=== PATIENT | male | born 1970 | race Caucasian/White ===

== ENCOUNTER 2023-04-28 05:36 | Emergency (ER) | payer BC, SELFPAY ==
[~2023-04-28] VITALS: Ht 185.4 cm; Wt 111.6 kg
[2023-04-28] MEDS: LIDOCAINE 1% MDV 20ML VIAL SC ONE (07:30)
[2023-04-28] MEDS ORDERED: CEPH500C PO (08:29)
[2023-04-28] MEDS: CEPHALEXIN 500 MG CAP PO ONE (08:39)
[2023-04-28] MEDS: NEOSPORIN OINT 0.9 GM PKT TOP ONE (08:39)
[2023-04-28 08:58] VITALS: BP 161/93; TEMP 97.5; O2SAT 100
== END 2023-04-28 08:59 | disposition home or self-care (01) ==
LOC: M ED 05:36
DX: S01.01XA Laceration without foreign body of scalp, initial encounter (principal); W01.190A Fall on same level from slipping, tripping and stumbling with subsequent striking against furniture, initial encounter; F10.10 Alcohol abuse, uncomplicated; F17.200 Nicotine dependence, unspecified, uncomplicated; Y92.009 Unspecified place in unspecified non-institutional (private) residence as the place of occurrence of the external cause; Y93.89 Activity, other specified; Y99.9 Unspecified external cause status; Z79.2 Long term (current) use of antibiotics

== ENCOUNTER 2023-05-10 02:59 | Emergency (ER) | payer BC ==
[~2023-05-10] VITALS: Ht 185.4 cm; Wt 110.4 kg
[2023-05-10 02:59] VITALS: BP 142/95; TEMP 97.6; O2SAT 98
[~2023-05-10 02:59] MED LIST: CEPH500C PO
[2023-05-10] MEDS ORDERED: AMLO1TAB25 (03:09)
== END 2023-05-10 06:31 | disposition home or self-care (01) ==
LOC: M ED 02:59
DX: Z48.02 Encounter for removal of sutures (principal); Z79.899 Other long term (current) drug therapy

== ENCOUNTER 2024-05-05 17:05 | Inpatient (IN) | payer BC ==
[~2024-05-05] VITALS: Ht 180.3 cm; Wt 126.6 kg
[~2024-05-05 17:05] MED LIST changes: +AMLO1TAB25 PO
[2024-05-05 18:00] LABS: BASO # 0.1 10^3/uL (0.0-0.2); BASO % 0.7 % (0.0-1.0); EOS # 0.2 10^3/uL (0.0-0.5); HEMATOCRIT 33.6 % (42.0-52.0); HEMOGLOBIN 12.4 g/dl (13.5-17.5); LYMPH % 20.3 % (24.0-44.0); MEAN CORPUSCULAR HEMOGLOBIN 37.9 pg (27.0-33.0); MEAN CORPUSCULAR HGB CONC 36.9 g/dl (32.0-36.5); MEAN CORPUSCULAR VOLUME 102.8 fl (80.0-96.0); MONO # 1.1 10^3/uL (0.0-0.8); MONO % 11.6 % (2.0-8.0); NEUTROPHILS # 6.3 10^3/uL (1.5-8.5); NEUTROPHILS % 64.7 % (36.0-66.0); PLATELET COUNT, AUTOMATED 257 10^3/uL (150-450); RED BLOOD COUNT 3.27 10^6/uL (4.30-6.10); WHITE BLOOD COUNT 9.7 10^3/uL (4.0-10.0)
[2024-05-05 18:19] LABS: LIPASE 48 U/L (12-53)
[2024-05-05 18:23] LABS: ALBUMIN 2.4 G/DL (3.2-5.2); ALKALINE PHOSPHATASE 212 U/L (40-129); ALT/SGPT 40 U/L (7.0-40); AST/SGOT 112 U/L (<34); BILIRUBIN,DIRECT 1.2 MG/DL (<0.4); BILIRUBIN,TOTAL 2.1 MG/DL (0.3-1.2); BLOOD UREA NITROGEN 8 MG/DL (9-23); CALCIUM LEVEL 8.1 MG/DL (8.5-10.1); CARBON DIOXIDE LEVEL 25 MMOL/L (20-31); CHLORIDE LEVEL 83 MMOL/L (98-107); CREATININE FOR GFR 0.63 MG/DL (0.70-1.30); GLOMERULAR FILTRATION RATE > 60.0 (>56); GLUCOSE, FASTING 85 MG/DL (60-100); POTASSIUM SERUM 4.5 MMOL/L (3.5-5.1); SODIUM LEVEL 115 MMOL/L (136-145); TOTAL PROTEIN 6.5 G/DL (5.7-8.2)
[2024-05-05 18:48] LABS: CK-MB VALUE MASS 2.1 NG/ML (<3.6)
[2024-05-05 18:53] LABS: CPK CREATINE PHOSPHOKINASE 144 U/L (46-171); MB/CK RELATIVE INDEX 1.45 (< OR =4)
[2024-05-05 20:21] LABS: INR 1.03; PARTIAL THROMBOPLASTIN TIME 35.7 SECONDS (24.8-34.2); PROTHROMBIN TIME 13.8 SECONDS (12.5-14.5)
[2024-05-05 20:23] LABS: FREE T4 1.08 NG/DL (0.89-1.76)
[2024-05-05] MEDS: NS 500 ML IV ONE (20:34)
[2024-05-05 20:35] LABS: HEPATITIS B SURFACE ANTIGEN NEGATIVE (NEGATIVE)
[2024-05-05] MEDS ORDERED: LISI40TA4 PO (20:49)
[2024-05-05] MEDS ORDERED: METO50TA7 PO (20:49)
[2024-05-05] MEDS ORDERED: HOME MED LIST COMPLETE! XX SCH (20:50)
[2024-05-05 20:56] LABS: HEPATITIS B CORE ANTIBODY IGM NEGATIVE (NEGATIVE)
[2024-05-05 21:06] LABS: OSMOLALITY SERUM 238 MOSM/KG (275-295)
[2024-05-05] MEDS ORDERED: MOM 30ML SUSPENSION UDC PO PRN (23:20)
[2024-05-05] MEDS ORDERED: NICOTINE 14 MG/24 HR TRANSDERMAL TD PRN (23:20)
[2024-05-05] MEDS ORDERED: LORazepam 2 MG TAB PO PRN (23:20)
[2024-05-05] MEDS ORDERED: ALBUTEROL 90 MCG/ACT 8GM HFA INHALER INH PRN (23:30)
[2024-05-06] VITALS (8 sets, daily range): BP systolic 100–112; BP diastolic 63–69; TEMP 97.5–98.4; O2SAT 94–98
[2024-05-06] MEDS: THIAMINE 100 MG TAB PO SCH (00:07)
[2024-05-06] MEDS: cefTRIAXone SOD 2 GM in DEXTROSE 5% (D5W) ADV/MINI-BAG 50 ML IV SCH (00:07)
[2024-05-06] MEDS: FUROSEMIDE 40MG/4ML VIAL IV ONE (00:08)
[2024-05-06] MEDS: IPRATROPIUM 0.5MG/ALBUTEROL 2.5MG INH SOL UD 3ML (DUONEB) NEB ONE (00:33)
[2024-05-06 02:47] LABS: ETHYL ALCOHOL (ETHANOL) < 0.003 % (0.000-0.010)
[2024-05-06 03:38] LABS: PROCALCITONIN 0.22 ng/ml
[2024-05-06 03:43] LABS: BLOOD UREA NITROGEN 9 MG/DL (9-23); CALCIUM LEVEL 7.4 MG/DL (8.5-10.1); CARBON DIOXIDE LEVEL 24 MMOL/L (20-31); CHLORIDE LEVEL 85 MMOL/L (98-107); CREATININE FOR GFR 0.57 MG/DL (0.70-1.30); GLOMERULAR FILTRATION RATE > 60.0 (>56); GLUCOSE, FASTING 81 MG/DL (60-100); POTASSIUM SERUM 3.9 MMOL/L (3.5-5.1); SODIUM LEVEL 116 MMOL/L (136-145)
[2024-05-06 06:48] LABS: HEMATOCRIT 32.4 % (42.0-52.0); MEAN CORPUSCULAR HEMOGLOBIN 37.9 pg (27.0-33.0); MEAN CORPUSCULAR VOLUME 102.2 fl (80.0-96.0); PLATELET COUNT, AUTOMATED 238 10^3/uL (150-450); RED BLOOD COUNT 3.17 10^6/uL (4.30-6.10); WHITE BLOOD COUNT 9.3 10^3/uL (4.0-10.0)
[2024-05-06 07:21] LABS: ALBUMIN 2.2 G/DL (3.2-5.2); ALKALINE PHOSPHATASE 163 U/L (40-129); ALT/SGPT 36 U/L (7.0-40); AST/SGOT 103 U/L (<34); BILIRUBIN,TOTAL 1.9 MG/DL (0.3-1.2); BLOOD UREA NITROGEN 8 MG/DL (9-23); CALCIUM LEVEL 7.7 MG/DL (8.5-10.1); CARBON DIOXIDE LEVEL 23 MMOL/L (20-31); CHLORIDE LEVEL 88 MMOL/L (98-107); CREATININE FOR GFR 0.55 MG/DL (0.70-1.30); GLOMERULAR FILTRATION RATE > 60.0 (>56); GLUCOSE, FASTING 78 MG/DL (60-100); MAGNESIUM LEVEL 2.2 MG/DL (1.8-2.4); POTASSIUM SERUM 4.2 MMOL/L (3.5-5.1); SODIUM LEVEL 117 MMOL/L (136-145); TOTAL PROTEIN 5.8 G/DL (5.7-8.2)
[2024-05-06 07:35] LABS: BLOOD UREA NITROGEN 8 MG/DL (9-23); CALCIUM LEVEL 7.5 MG/DL (8.5-10.1); CARBON DIOXIDE LEVEL 23 MMOL/L (20-31); CHLORIDE LEVEL 87 MMOL/L (98-107); CREATININE FOR GFR 0.54 MG/DL (0.70-1.30); GLOMERULAR FILTRATION RATE > 60.0 (>56); GLUCOSE, FASTING 76 MG/DL (60-100); POTASSIUM SERUM 4.3 MMOL/L (3.5-5.1); SODIUM LEVEL 118 MMOL/L (136-145)
[2024-05-06] MEDS: MULTIVITAMINS/MINERALS THERAP 1 TAB PO SCH (08:16)
[2024-05-06] MEDS: FOLIC ACID 1MG TAB PO SCH (08:16)
[2024-05-06] MEDS: DOCUSATE SODIUM 100MG CAPSULE PO SCH (08:16)
[2024-05-06] MEDS: ENOXAPARIN 40MG/0.4ML SYRINGE (J1650 PER 10MG) SC SCH (08:17)
[2024-05-06 11:12] LABS: OSMOLALITY URINE 396 MOSM/KG (50-1400)
[2024-05-06 11:14] LABS: KETONE, URINE AUTO RFX TRACE mg/dL (NEGATIVE); LEUKOCYTE ESTERASE UR AUTO RFX NEGATIVE (NEGATIVE); MUCUS, URINE RFX SMALL (NEGATIVE); NITRITE, URINE AUTO RFX NEGATIVE (NEGATIVE); RBC, URINE AUTO RFX 0 /HPF (0-3); SQUAM EPITHELIAL CELL UR AURFX 0 /HPF (0-6); WBC, URINE AUTO RFX 1 /HPF (0-3)
[2024-05-06 11:39] LABS: SODIUM,RANDOM URINE < 10 MMOL/L
[2024-05-06 14:34] LABS: ASCITES FL COLOR YELLOW (COLORLESS); SOURCE, BODY FLUID ASCITES
[2024-05-06 14:35] LABS: APPEARANCE, BODY FLUID CLEAR (CLEAR)
[2024-05-06 14:48] LABS: BLOOD UREA NITROGEN 9 MG/DL (9-23); CALCIUM LEVEL 7.4 MG/DL (8.5-10.1); CARBON DIOXIDE LEVEL 24 MMOL/L (20-31); CHLORIDE LEVEL 88 MMOL/L (98-107); CREATININE FOR GFR 0.55 MG/DL (0.70-1.30); GLOMERULAR FILTRATION RATE > 60.0 (>56); GLUCOSE, FASTING 100 MG/DL (60-100); POTASSIUM SERUM 4.1 MMOL/L (3.5-5.1); SODIUM LEVEL 118 MMOL/L (136-145)
[2024-05-06 14:50] LABS: SOURCE, BODY FLUID GLUCOSE ASCITES
[2024-05-06 15:40] LABS: SOURCE, BODY FLUID ALBUMIN ASCITES
[2024-05-06 18:17] LABS: HEPATITIS C VIRUS ABY INDEX 0.04 INDEX (<0.8)
[2024-05-06 19:16] LABS: SOURCE, BODY FLUID TOT PROTEIN ASCITES; TOTAL PROTEIN, BODY FLUID < 2.0 G/DL (NOT ESTABLISHED)
[2024-05-06] MEDS: SODIUM CHLORIDE 3% 500 ML IV SCH (21:12)
[2024-05-06 21:39] LABS: BLOOD UREA NITROGEN 10 MG/DL (9-23); CALCIUM LEVEL 7.4 MG/DL (8.5-10.1); CARBON DIOXIDE LEVEL 24 MMOL/L (20-31); CHLORIDE LEVEL 88 MMOL/L (98-107); CREATININE FOR GFR 0.53 MG/DL (0.70-1.30); GLOMERULAR FILTRATION RATE > 60.0 (>56); GLUCOSE, FASTING 99 MG/DL (60-100); POTASSIUM SERUM 4.2 MMOL/L (3.5-5.1); SODIUM LEVEL 118 MMOL/L (136-145)
[2024-05-06 23:28] LABS: BLOOD UREA NITROGEN 11 MG/DL (9-23); CALCIUM LEVEL 7.7 MG/DL (8.5-10.1); CARBON DIOXIDE LEVEL 25 MMOL/L (20-31); CHLORIDE LEVEL 88 MMOL/L (98-107); GLOMERULAR FILTRATION RATE > 60.0 (>56); GLUCOSE, FASTING 93 MG/DL (60-100); SODIUM LEVEL 118 MMOL/L (136-145)
[2024-05-07] VITALS (12 sets, daily range): BP systolic 115–139; BP diastolic 66–73; TEMP 97.1–98.8; O2SAT 92–97
[2024-05-07 01:37] LABS: BLOOD UREA NITROGEN 10 MG/DL (9-23); CALCIUM LEVEL 7.3 MG/DL (8.5-10.1); CARBON DIOXIDE LEVEL 24 MMOL/L (20-31); CHLORIDE LEVEL 90 MMOL/L (98-107); CREATININE FOR GFR 0.51 MG/DL (0.70-1.30); GLOMERULAR FILTRATION RATE > 60.0 (>56); GLUCOSE, FASTING 94 MG/DL (60-100); POTASSIUM SERUM 4.1 MMOL/L (3.5-5.1); SODIUM LEVEL 121 MMOL/L (136-145)
[2024-05-07 03:46] LABS: BLOOD UREA NITROGEN 10 MG/DL (9-23); CALCIUM LEVEL 7.3 MG/DL (8.5-10.1); CARBON DIOXIDE LEVEL 25 MMOL/L (20-31); CHLORIDE LEVEL 91 MMOL/L (98-107); CREATININE FOR GFR 0.54 MG/DL (0.70-1.30); GLOMERULAR FILTRATION RATE > 60.0 (>56); GLUCOSE, FASTING 88 MG/DL (60-100); POTASSIUM SERUM 4.2 MMOL/L (3.5-5.1); SODIUM LEVEL 122 MMOL/L (136-145)
[2024-05-07 06:36] LABS: BLOOD UREA NITROGEN 11 MG/DL (9-23); CALCIUM LEVEL 7.8 MG/DL (8.5-10.1); CARBON DIOXIDE LEVEL 25 MMOL/L (20-31); CHLORIDE LEVEL 90 MMOL/L (98-107); CREATININE FOR GFR 0.49 MG/DL (0.70-1.30); GLOMERULAR FILTRATION RATE > 60.0 (>56); GLUCOSE, FASTING 84 MG/DL (60-100); POTASSIUM SERUM 4.3 MMOL/L (3.5-5.1); SODIUM LEVEL 122 MMOL/L (136-145)
[2024-05-07 07:36] LABS: BLOOD UREA NITROGEN 9 MG/DL (9-23); CALCIUM LEVEL 7.6 MG/DL (8.5-10.1); CARBON DIOXIDE LEVEL 24 MMOL/L (20-31); CHLORIDE LEVEL 92 MMOL/L (98-107); CREATININE FOR GFR 0.51 MG/DL (0.70-1.30); GLOMERULAR FILTRATION RATE > 60.0 (>56); GLUCOSE, FASTING 86 MG/DL (60-100); SODIUM LEVEL 122 MMOL/L (136-145)
[2024-05-07] MEDS: SODIUM CHLORIDE 3% 500 ML IV SCH (09:30)
[2024-05-07] MEDS: MAALOX 30 ML SUSP *UDC PO PRN (10:57)
[2024-05-07] MEDS ORDERED: NICO14PA TD (11:31)
[2024-05-07] MEDS ORDERED: THIA100TA PO (11:31)
[2024-05-07] MEDS ORDERED: CEFD300CAP PO (11:31)
[2024-05-07] MEDS ORDERED: THERTAB19 PO (11:31)
[2024-05-07] MEDS ORDERED: FOLI1TAB11 PO (11:31)
[2024-05-07] MEDS ORDERED: SODI1TAB12 PO (11:31)
== END 2024-05-07 12:36 | disposition left against medical advice (07) | DRG 425 ==
LOC: M ED 17:05 → EDBD 17:05 → M ED INP 23:17 → M MSPAV 05-06 16:18 → M PCU 05-06 21:05
PROVIDERS: ADMIT Student in an Organized Health Care Education/Training Program; ATTEND General Practice
DX: E87.1 Hypo-osmolality and hyponatremia (principal); K76.7 Hepatorenal syndrome; E88.09 Other disorders of plasma-protein metabolism, not elsewhere classified; K70.30 Alcoholic cirrhosis of liver without ascites; F17.200 Nicotine dependence, unspecified, uncomplicated; D53.9 Nutritional anemia, unspecified; I10 Essential (primary) hypertension; E87.8 Other disorders of electrolyte and fluid balance, not elsewhere classified

== ENCOUNTER 2024-05-25 06:49 | Observation (INO) | payer BC ==
[~2024-05-25] VITALS: Ht 185.4 cm; Wt 136.1 kg
[2024-05-25] VITALS (8 sets, daily range): BP systolic 95–107; BP diastolic 58–65; TEMP 96.4–98.8; O2SAT 95–100
[~2024-05-25 06:49] MED LIST changes: +CEFD300CAP PO; +FOLI1TAB11 PO; +LISI40TA4 PO; +METO50TA7 PO; +NICO14PA TD; +SODI1TAB12 PO; +THERTAB19 PO; +THIA100TA PO
[2024-05-25 07:33] LABS: BASO # 0.1 10^3/uL (0.0-0.2); BASO % 0.9 % (0.0-1.0); EOS # 0.2 10^3/uL (0.0-0.5); EOS % 2.6 % (0.0-3.0); HEMATOCRIT 35.2 % (42.0-52.0); HEMOGLOBIN 11.7 g/dl (13.5-17.5); LYMPH # 1.9 10^3/uL (1.5-5.0); MEAN CORPUSCULAR HEMOGLOBIN 34.5 pg (27.0-33.0); MEAN CORPUSCULAR HGB CONC 33.2 g/dl (32.0-36.5); MEAN CORPUSCULAR VOLUME 103.8 fl (80.0-96.0); MONO # 1.4 10^3/uL (0.0-0.8); NEUTROPHILS # 5.7 10^3/uL (1.5-8.5); NEUTROPHILS % 61.2 % (36.0-66.0); PLATELET COUNT, AUTOMATED 377 10^3/uL (150-450); RED BLOOD COUNT 3.39 10^6/uL (4.30-6.10); WHITE BLOOD COUNT 9.4 10^3/uL (4.0-10.0)
[2024-05-25 07:54] LABS: INR 1.11; PROTHROMBIN TIME 14.6 SECONDS (12.5-14.5)
[2024-05-25 08:18] LABS: ALBUMIN 2.5 G/DL (3.2-5.2); ALKALINE PHOSPHATASE 151 U/L (40-129); ALT/SGPT 24 U/L (7.0-40); AST/SGOT 48 U/L (<34); BILIRUBIN,DIRECT 0.6 MG/DL (<0.4); BILIRUBIN,TOTAL 1.1 MG/DL (0.3-1.2); BLOOD UREA NITROGEN 9 MG/DL (9-23); CALCIUM LEVEL 8.7 MG/DL (8.5-10.1); CARBON DIOXIDE LEVEL 27 MMOL/L (20-31); CHLORIDE LEVEL 96 MMOL/L (98-107); CREATININE FOR GFR 0.66 MG/DL (0.70-1.30); GLOMERULAR FILTRATION RATE > 60.0 (>56); GLUCOSE, FASTING 88 MG/DL (60-100); POTASSIUM SERUM 4.8 MMOL/L (3.5-5.1); SODIUM LEVEL 129 MMOL/L (136-145); TOTAL PROTEIN 6.6 G/DL (5.7-8.2)
[2024-05-25] MEDS ORDERED: FOLI1TAB11 PO (10:51)
[2024-05-25] MEDS ORDERED: HOME MED LIST COMPLETE! XX SCH (10:55)
[2024-05-25 11:11] LABS: KETONE, URINE AUTO RFX NEGATIVE (NEGATIVE); LEUKOCYTE ESTERASE UR AUTO RFX NEGATIVE (NEGATIVE); MUCUS, URINE RFX LARGE (NEGATIVE); NITRITE, URINE AUTO RFX NEGATIVE (NEGATIVE); RBC, URINE AUTO RFX 1 /HPF (0-3); SQUAM EPITHELIAL CELL UR AURFX 2 /HPF (0-6); WBC, URINE AUTO RFX 0 /HPF (0-3)
[2024-05-25 11:39] LABS: CK-MB VALUE MASS < 1.0 NG/ML (<3.6); OSMOLALITY SERUM 273 MOSM/KG (275-295)
[2024-05-25 11:43] LABS: FREE T4 1.23 NG/DL (0.89-1.76)
[2024-05-25 11:50] LABS: CPK CREATINE PHOSPHOKINASE 59 U/L (46-171); CREATININE,RANDOM URINE 344.8 MG/DL; MB/CK RELATIVE INDEX 1.69 (< OR =4); SODIUM,RANDOM URINE < 10 MMOL/L
[2024-05-25] MEDS: MIDODRINE 5 MG TAB PO SCH (13:17)
[2024-05-25 15:07] LABS: APPEARANCE, BODY FLUID CLEAR (CLEAR); ASCITES FL COLOR PALE YELLOW (COLORLESS); SOURCE, BODY FLUID ASCITES
[2024-05-25 15:28] LABS: SOURCE, BODY FLUID ALBUMIN ASCITES
[2024-05-25 15:33] LABS: SOURCE, BODY FLUID GLUCOSE ASCITES
[2024-05-25 18:20] LABS: SOURCE, BODY FLUID TOT PROTEIN ASCITES; TOTAL PROTEIN, BODY FLUID < 2.0 G/DL (NOT ESTABLISHED)
[2024-05-25] MEDS: OMEPRAZOLE 20MG CAP PO ONE (20:19)
[2024-05-25] MEDS: MULTIVITAMINS/MINERALS THERAP 1 TAB PO ONE (20:19)
[2024-05-25] MEDS: THIAMINE 100 MG TAB PO ONE (20:19)
[2024-05-26] VITALS: BP 99/60
[2024-05-26 04:00] VITALS: BP 89/50; TEMP 97.4; O2SAT 94
[2024-05-26] MEDS: NS 500 ML IV ONE (05:22)
[2024-05-26 05:54] VITALS: BP 103/71
[2024-05-26] MEDS ORDERED: THIA100TA PO (07:23)
[2024-05-26] MEDS ORDERED: PROP10TA56 PO (07:23)
[2024-05-26] MEDS ORDERED: LASI20TA3 PO (07:23)
[2024-05-26] MEDS ORDERED: TALK1KIT MC (07:23)
[2024-05-26] MEDS ORDERED: MIDO5TA PO (07:26)
[2024-05-26 07:45] LABS: ALBUMIN 2.7 G/DL (3.2-5.2); ALKALINE PHOSPHATASE 137 U/L (40-129); ALT/SGPT 19 U/L (7.0-40); AST/SGOT 37 U/L (<34); BILIRUBIN,DIRECT 0.6 MG/DL (<0.4); BILIRUBIN,TOTAL 1.1 MG/DL (0.3-1.2); BLOOD UREA NITROGEN 7 MG/DL (9-23); CALCIUM LEVEL 8.5 MG/DL (8.5-10.1); CARBON DIOXIDE LEVEL 26 MMOL/L (20-31); CHLORIDE LEVEL 101 MMOL/L (98-107); CREATININE FOR GFR 0.59 MG/DL (0.70-1.30); GLOMERULAR FILTRATION RATE > 60.0 (>56); GLUCOSE, FASTING 92 MG/DL (60-100); POTASSIUM SERUM 4.2 MMOL/L (3.5-5.1); SODIUM LEVEL 134 MMOL/L (136-145); TOTAL PROTEIN 6.1 G/DL (5.7-8.2)
[2024-05-26] MEDS: OMEPRAZOLE 20MG CAP PO SCH (08:10)
[2024-05-26] MEDS: THIAMINE 100 MG TAB PO SCH (08:10)
[2024-05-26] MEDS: FOLIC ACID 1MG TAB PO SCH (08:11)
[2024-05-26] MEDS: MULTIVITAMINS/MINERALS THERAP 1 TAB PO SCH (08:11)
[2024-05-26 08:15] VITALS: BP 101/68
[2024-05-26 08:45] VITALS: O2SAT 97
[2024-05-26] MEDS ORDERED: METOPROLOL TART 50 MG TAB PO SCH (09:00)
[2024-05-26] MEDS ORDERED: FOLIC ACID 1MG TAB PO SCH (09:00)
== END 2024-05-26 09:06 | disposition home or self-care (01) ==
LOC: M ED 06:49 → M ED INP 06:50
PROVIDERS: ADMIT General Practice; ATTEND General Practice
DX: K70.31 Alcoholic cirrhosis of liver with ascites (principal); D53.9 Nutritional anemia, unspecified; F10.288 Alcohol dependence with other alcohol-induced disorder; E87.8 Other disorders of electrolyte and fluid balance, not elsewhere classified; R74.01 Elevation of levels of liver transaminase levels; E88.09 Other disorders of plasma-protein metabolism, not elsewhere classified; I95.9 Hypotension, unspecified; F17.210 Nicotine dependence, cigarettes, uncomplicated; Z91.199 Patient's noncompliance with other medical treatment and regimen due to unspecified reason; Z79.899 Other long term (current) drug therapy
CPT/HCPCS: 36415; 49083; 71045; 76705; 80048; 80076; 81001; 82042; 82140; 82550; 82553; 82570; 82945; 83880; 83930; 83935; 84157; 84300; 84439; 84443; 84484; 85025; 85610; 85730; 87070; 87077; 87102; 87116; 87205; 87206; 89050; 93041; 93970; 97161; 99285; P9047

== ENCOUNTER 2024-06-10 08:51 | Emergency (ER) | payer BC ==
[~2024-06-10] VITALS: Ht 188 cm; Wt 133.1 kg
[~2024-06-10 08:51] MED LIST changes: +LASI20TA3 PO; +MIDO5TA PO; +PROP10TA56 PO; +TALK1KIT MC
[2024-06-10 11:25] LABS: HEMATOCRIT 41.6 % (42.0-52.0); HEMOGLOBIN 13.9 g/dl (13.5-17.5); MEAN CORPUSCULAR HEMOGLOBIN 32.3 pg (27.0-33.0); MEAN CORPUSCULAR HGB CONC 33.4 g/dl (32.0-36.5); MEAN CORPUSCULAR VOLUME 96.7 fl (80.0-96.0); PLATELET COUNT, AUTOMATED 391 10^3/uL (150-450); WHITE BLOOD COUNT 9.8 10^3/uL (4.0-10.0)
[2024-06-10 11:41] LABS: ALBUMIN 2.9 G/DL (3.2-5.2); ALKALINE PHOSPHATASE 172 U/L (40-129); ALT/SGPT 23 U/L (7.0-40); AST/SGOT 75 U/L (<34); BILIRUBIN,DIRECT 0.5 MG/DL (<0.4); BILIRUBIN,TOTAL 1.2 MG/DL (0.3-1.2); BLOOD UREA NITROGEN 8 MG/DL (9-23); CALCIUM LEVEL 9.2 MG/DL (8.5-10.1); CARBON DIOXIDE LEVEL 23 MMOL/L (20-31); CHLORIDE LEVEL 99 MMOL/L (98-107); CREATININE FOR GFR 0.54 MG/DL (0.70-1.30); GLOMERULAR FILTRATION RATE > 90.0 (>56); GLUCOSE, FASTING 118 MG/DL (60-100); LIPASE 28 U/L (12-53); POTASSIUM SERUM 4.9 MMOL/L (3.5-5.1); SODIUM LEVEL 131 MMOL/L (136-145); TOTAL PROTEIN 7.7 G/DL (5.7-8.2)
[2024-06-10 11:56] LABS: ATYPICAL LYMPH 2 % (0-5); BASOPHILS 1 % (0-1); EOSINOPHILS 1 % (0-3); LYMPHOCYTES 20 % (16-44); MONOCYTES 12 % (0-5); NEUTROPHILS 64 % (28-66); PLATELET ESTIMATE NORMAL (NORMAL)
[2024-06-10 13:17] LABS: INR 1.06; PARTIAL THROMBOPLASTIN TIME 26.2 SECONDS (24.8-34.2); PROTHROMBIN TIME 14.1 SECONDS (12.5-14.5)
[2024-06-10 15:23] VITALS: BP 116/73; TEMP 97; O2SAT 98
== END 2024-06-10 16:08 | disposition home or self-care (01) ==
LOC: M ED 08:51
DX: R18.8 Other ascites (principal); K74.60 Unspecified cirrhosis of liver; F17.200 Nicotine dependence, unspecified, uncomplicated; Z79.899 Other long term (current) drug therapy

== ENCOUNTER 2024-06-29 08:39 | Emergency (ER) | payer BC ==
[~2024-06-29] VITALS: Ht 185.4 cm; Wt 132.6 kg
[2024-06-29 12:43] LABS: BASO % 0.5 % (0.0-1.0); EOS # 0.1 10^3/uL (0.0-0.5); EOS % 0.7 % (0.0-3.0); HEMATOCRIT 41.4 % (42.0-52.0); LYMPH # 1.7 10^3/uL (1.5-5.0); LYMPH % 20.1 % (24.0-44.0); MEAN CORPUSCULAR HEMOGLOBIN 31.2 pg (27.0-33.0); MEAN CORPUSCULAR HGB CONC 33.8 g/dl (32.0-36.5); MEAN CORPUSCULAR VOLUME 92.2 fl (80.0-96.0); MONO # 1.2 10^3/uL (0.0-0.8); MONO % 14.7 % (2.0-8.0); NEUTROPHILS # 5.4 10^3/uL (1.5-8.5); NEUTROPHILS % 63.8 % (36.0-66.0); PLATELET COUNT, AUTOMATED 310 10^3/uL (150-450); RED BLOOD COUNT 4.49 10^6/uL (4.30-6.10); WHITE BLOOD COUNT 8.4 10^3/uL (4.0-10.0)
[2024-06-29 13:01] LABS: ALBUMIN 2.5 G/DL (3.2-5.2); ALKALINE PHOSPHATASE 139 U/L (40-129); ALT/SGPT 19 U/L (7.0-40); AST/SGOT 39 U/L (<34); BILIRUBIN,DIRECT 0.6 MG/DL (<0.4); BILIRUBIN,TOTAL 1.3 MG/DL (0.3-1.2); BLOOD UREA NITROGEN 11 MG/DL (9-23); CALCIUM LEVEL 8.8 MG/DL (8.5-10.1); CARBON DIOXIDE LEVEL 25 MMOL/L (20-31); CHLORIDE LEVEL 96 MMOL/L (98-107); GLOMERULAR FILTRATION RATE > 90.0 (>56); GLUCOSE, FASTING 105 MG/DL (60-100); POTASSIUM SERUM 4.3 MMOL/L (3.5-5.1); SODIUM LEVEL 129 MMOL/L (136-145); TOTAL PROTEIN 6.9 G/DL (5.7-8.2)
[2024-06-29 13:36] LABS: INR 1.11; PARTIAL THROMBOPLASTIN TIME 34.9 SECONDS (24.8-34.2); PROTHROMBIN TIME 14.7 SECONDS (12.5-14.5)
[2024-06-29 15:02] VITALS: TEMP 96.7
[2024-06-29 17:09] VITALS: O2SAT 98
[2024-06-29 17:23] VITALS: BP 110/70
== END 2024-06-29 17:45 | disposition left against medical advice (07) ==
LOC: M ED 08:39
DX: R18.8 Other ascites (principal); I10 Essential (primary) hypertension; F10.10 Alcohol abuse, uncomplicated; Z79.899 Other long term (current) drug therapy; Z53.9 Procedure and treatment not carried out, unspecified reason
CPT/HCPCS: 36430; 49083; 80048; 80076; 83880; 85025; 85610; 85730; 99284; P9047

== ENCOUNTER → 2024-07-06 | Outpatient (CLI) | payer BC, OTHER ==
[2024-07-06 14:24] VITALS: TEMP 97.2
[2024-07-06 15:03] VITALS: BP 109/68; O2SAT 99
== END ==
LOC: M IRPRO 14:07
PROVIDERS: ATTEND Physician Assistant Medical
DX: R18.8 Other ascites (principal)

== ENCOUNTER → 2024-07-13 | Outpatient (CLI) | payer OTHER, BC ==
[~2024-07-13] MED LIST changes: +ACETAMINOPHEN 325 MG TAB PO PRN
[2024-07-13 10:17] VITALS: TEMP 96.7
[2024-07-13 11:34] VITALS: BP 131/82; O2SAT 98
== END ==
LOC: M IRPRO 10:10
PROVIDERS: ATTEND Physician Assistant Medical
DX: R18.8 Other ascites (principal)

== ENCOUNTER → 2024-07-20 | Outpatient (CLI) | payer OTHER, BC ==
[~2024-07-20] MED LIST changes: -ACETAMINOPHEN 325 MG TAB PO PRN
[2024-07-20 09:10] VITALS: TEMP 96.9
[2024-07-20 10:05] VITALS: BP 110/71; O2SAT 98
== END ==
LOC: M IRPRO 08:55
PROVIDERS: ATTEND Physician Assistant Medical
DX: R18.8 Other ascites (principal)

== ENCOUNTER → 2024-07-22 | Outpatient (POV) | payer OTHER, BC ==
[~2024-07-22] VITALS: Ht 185.4 cm; Wt 109.1 kg
[~2024-07-22] MED LIST changes: +FURO40TA2 PO; +METO100T5 PO; +METO100T7 PO; +SPIR100T3 PO
[2024-07-22 08:20] VITALS: BP 112/78; O2SAT 99
== END ==
LOC: M IRPOV 07:50
PROVIDERS: ATTEND Radiology Diagnostic Radiology
DX: K70.31 Alcoholic cirrhosis of liver with ascites (principal); Z79.899 Other long term (current) drug therapy; Z86.59 Personal history of other mental and behavioral disorders

== ENCOUNTER → 2024-09-08 | Outpatient (CLI) | payer BC, OTHER ==
[~2024-09-08] MED LIST changes: +LISI40TA10 PO; -LISI40TA4 PO
== END ==
LOC: M IRPRO 15:23
PROVIDERS: ATTEND Physician Assistant Medical
DX: R18.8 Other ascites (principal)

== ENCOUNTER → 2024-09-15 | Outpatient (CLI) | payer OTHER, BC ==
[2024-09-15 15:25] VITALS: TEMP 98
[2024-09-15 15:58] VITALS: BP 110/69; O2SAT 96
== END ==
LOC: M IRPRO 15:17
PROVIDERS: ATTEND Physician Assistant Medical
DX: R18.8 Other ascites (principal)

== ENCOUNTER → 2024-09-29 | Outpatient (CLI) | payer BC, OTHER ==
[~2024-09-29] MED LIST changes: +ISOVUE-370 76% 100 ML VIAL As Ordered ONE
== END ==
LOC: M IRPRO 15:15
PROVIDERS: ATTEND Physician Assistant Medical
DX: R18.8 Other ascites (principal)

== ENCOUNTER → 2024-10-01 | Outpatient (CLI) | payer BC ==
[~2024-10-01] MED LIST changes: -ISOVUE-370 76% 100 ML VIAL As Ordered ONE; +ISOVUE-370 76% 100 ML VIAL ONE
== END ==
LOC: M CARPUL 08:52
PROVIDERS: ATTEND Radiology Diagnostic Radiology
DX: Z01.818 Encounter for other preprocedural examination (principal); R18.8 Other ascites; I31.39 Other pericardial effusion (noninflammatory)
CPT/HCPCS: 74160; 93306; Q9967

== ENCOUNTER → 2024-10-29 | Outpatient (CLI) | payer OTHER ==
[~2024-10-29] MED LIST changes: -ISOVUE-370 76% 100 ML VIAL ONE
== END ==
LOC: M IRPRO 10:50
PROVIDERS: ATTEND Physician Assistant Medical
DX: R18.8 Other ascites (principal)